=== PATIENT | male | born 1960 | race Two or more races ===

== ENCOUNTER 2018-07-28 11:50 | Emergency (ER) | payer SELFPAY ==
[~2018-07-28] VITALS: Ht 175.3 cm; Wt 103.0 kg
[2018-07-28 13:53] VITALS: BP 125/88
== END 2018-07-28 14:30 | disposition home or self-care (01) ==
LOC: ER 12:09
DX: S46.912A Strain of unspecified muscle, fascia and tendon at shoulder and upper arm level, left arm, initial encounter (principal); S29.011A Strain of muscle and tendon of front wall of thorax, initial encounter; X50.1XXA Overexertion from prolonged static or awkward postures, initial encounter; Y93.89 Activity, other specified; Y99.8 Other external cause status; Y92.89 Other specified places as the place of occurrence of the external cause
CPT/HCPCS: 71101; 73030

== ENCOUNTER 2019-06-19 20:18 | Emergency (ER) | payer OTHER ==
[~2019-06-19] VITALS: Ht 172.7 cm; Wt 102.1 kg
[2019-06-19 20:54] VITALS: BP 138/70
== END 2019-06-19 22:22 | disposition home or self-care (01) ==
LOC: ER 20:18
DX: L03.116 Cellulitis of left lower limb (principal); Z86.718 Personal history of other venous thrombosis and embolism
CPT/HCPCS: 93971

== ENCOUNTER 2020-09-27 10:36 | Inpatient (IN) | payer OTHER ==
[~2020-09-27] VITALS: Ht 175.3 cm; Wt 107.7 kg
[2020-09-27] MEDS ORDERED: methylPREDNISolone SOD SUCC 125 MG/2 ML VL IV ONE (11:00)
[2020-09-27] MEDS ORDERED: ZINC SULFATE 220mg CAP or TAB PO ONE (11:00)
[2020-09-27] MEDS ORDERED: CHOLECALCIFEROL (VITD3) 2,000 UNIT CAP/TAB PO ONE (11:00)
[2020-09-27] MEDS ORDERED: AZITHROMYCIN 500MG/ 250ML 250 ML IV ONE (11:00)
[2020-09-27] MEDS ORDERED: ASCORBIC ACID 500 MG TAB PO ONE (11:00)
[2020-09-27 11:19] LABS: Basophils # (auto) 0 10 ^3/uL (0-0.2); Basophils % (auto) 0.5 % (0.0-2.0); Eosinophils # (auto) 0 10 ^3/uL (0-0.8); Hematocrit 42.5 % (41.0-53.0); Lymphocytes # (auto) 1.3 10 ^3/uL (0.4-5.4); Lymphocytes % (auto) 24.9 % (10.0-50.0); Mean Corpuscular Hemoglobin 31.5 pg (28.0-32.0); Mean Corpuscular Hgb Conc. 35.3 g/dL (32.0-36.0); Mean Corpuscular Volume 89.2 fL (80.0-100.0); Monocytes # (auto) 0.4 10 ^3/uL (0-1.3); Neutrophils # (auto) 3.4 10 ^3/uL (1.6-8.6); Neutrophils % (auto) 67.6 % (37.0-80.0); Nucleated Red Blood Cells % 0.1 %; Red Blood Cells 4.76 10^6/uL (4.5-5.90); Red Cell Distribution Width 12.8 % (11.8-14.3); White Blood Cell 5.1 10^3/uL (4.4-10.8)
[2020-09-27 11:40] LABS: Albumin 3.2 g/dL (3.4-5.0); Anion Gap 4 (5-15); Blood Urea Nitrogen 14 mg/dL (7-18); Calcium 8.6 mg/dL (8.5-10.1); Carbon Dioxide 28 mmol/L (21-32); Chloride 101 mmol/L (98-107); Glucose 103 mg/dL (74-106); Magnesium 2.4 mg/dL (1.6-2.6); Potassium 4.2 mmol/L (3.5-5.1); Sodium 133 mmol/L (136-145)
[2020-09-27 11:48] LABS: Alanine Aminotransferase 57 U/L (16-61); Alkaline Phosphatase 74 U/L (45-117); Aspartate Aminotransferase 61 U/L (15-37); Bilirubin, Total 0.5 mg/dL (0.2-1.0); CRP High Sensitivity 1.69 mg/dL (< 0.3); GFR African American 82 mL/min; GFR Non-African American 68 mL/min; Total Protein 7.8 g/dL (6.4-8.2)
[2020-09-27 12:04] LABS: Urine Bacteria NONE SEEN /hpf (None Seen); Urine Blood Negative /uL (Negative); Urine Specific Gravity 1.014 (1.001-1.035); Urine WBC 1 /hpf (0 - 3)
[2020-09-27] MEDS ORDERED: ONDANSETRON HCL 4 MG/2 ML VIAL IV ONE (12:15)
[2020-09-27] MEDS ORDERED: MORPHINE SULFATE INJECTION 2 MG/ML SYRG IV PRN (13:30)
[2020-09-27] MEDS ORDERED: ACETAMINOPHEN 500 MG TAB PO PRN (13:30)
[2020-09-27] MEDS ORDERED: ONDANSETRON HCL 4 MG/2 ML VIAL IV PRN (13:30)
[2020-09-27] MEDS ORDERED: hydrALAZINE HCL 20 MG/ML VL IV PRN (13:30)
[2020-09-27] MEDS ORDERED: LORazepam 0.5 MG TAB PO PRN (13:30)
[2020-09-27] MEDS ORDERED: MORPHINE SULFATE 4 MG/ML SYR/VIAL IV PRN (13:30)
[2020-09-27] MEDS ORDERED: NITROGLYCERIN 0.4 MG SL TAB SL PRN (13:30)
[2020-09-27] MEDS ORDERED: DOCUSATE CALCIUM 240 MG CAP PO PRN (13:30)
[2020-09-27 14:00] VITALS: BP 94/55
[2020-09-27] MEDS ORDERED: SODIUM CHLORIDE 0.9% 1,000 ML IV ONE (14:00)
[2020-09-27] MEDS: SODIUM CHLORIDE 0.9% 1,000 ML IV SCH (15:10)
[2020-09-27] MEDS: IPRATROPIUM BROMIDE HFA AER IN SCH (20:45)
[2020-09-27] MEDS: methylPREDNISolone SOD SUCC 125 MG/2 ML VL IV SCH (22:02)
[2020-09-27] MEDS: ENOXAPARIN SOD 40 MG/0.4 ML SYRINGE SC SCH (22:02)
[2020-09-28] MEDS: BUDESONIDE (INHALATION) 180 MCG IH IN SCH ×3 (00:55→19:20)
[2020-09-28] MEDS: IPRATROPIUM BROMIDE HFA AER IN SCH ×5 (00:55→22:37)
[2020-09-28] MEDS: ALBUTEROL SULF HFA 90MCG INH 200DOSE IN PRN ×3 (00:56→21:25)
[2020-09-28] MEDS: SODIUM CHLORIDE 0.9% 1,000 ML IV SCH ×2 (01:00→11:00)
[2020-09-28 05:18] LABS: Basophils # (auto) 0 10 ^3/uL (0-0.2); Eosinophils # (auto) 0 10 ^3/uL (0-0.8); Hematocrit 40.7 % (41.0-53.0); Hemoglobin 14.4 g/dL (13.5-17.5); Lymphocytes # (auto) 0.6 10 ^3/uL (0.4-5.4); Lymphocytes % (auto) 17.4 % (10.0-50.0); Mean Corpuscular Hemoglobin 31.3 pg (28.0-32.0); Mean Corpuscular Hgb Conc. 35.3 g/dL (32.0-36.0); Mean Corpuscular Volume 88.7 fL (80.0-100.0); Monocytes # (auto) 0.2 10 ^3/uL (0-1.3); Monocytes % (auto) 6.7 % (0.0-12.0); Neutrophils # (auto) 2.6 10 ^3/uL (1.6-8.6); Neutrophils % (auto) 74.9 % (37.0-80.0); Red Blood Cells 4.59 10^6/uL (4.5-5.90); Red Cell Distribution Width 12.7 % (11.8-14.3); White Blood Cell 3.5 10^3/uL (4.4-10.8)
[2020-09-28 05:34] LABS: BUN/Creatinine Ratio 19.2; Calcium 8.4 mg/dL (8.5-10.1); INR 1.02 (0.9-1.15)
[2020-09-28 05:36] LABS: Bilirubin, Total 0.4 mg/dL (0.2-1.0); Total Protein 7.4 g/dL (6.4-8.2)
[2020-09-28 06:02] LABS: Thyroid Stimulating Hormone 0.17 uIU/mL (0.358-3.74)
[2020-09-28] MEDS: ENOXAPARIN SOD 40 MG/0.4 ML SYRINGE SC SCH ×2 (10:19→21:38)
[2020-09-28] MEDS: CHOLECALCIFEROL (VITD3) 2,000 UNIT CAP/TAB PO SCH (10:20)
[2020-09-28] MEDS: methylPREDNISolone SOD SUCC 125 MG/2 ML VL IV SCH (10:21)
[2020-09-28] MEDS: ZINC SULFATE 220mg CAP or TAB PO SCH (10:22)
[2020-09-28] MEDS: AZITHROMYCIN 500MG/ 250ML 250 ML IV SCH (10:23)
[2020-09-28] MEDS: PANTOPRAZOLE 40 MG TAB PO SCH (10:24)
[2020-09-28] MEDS: cefTRIAXone 1GM/50ML D5W 50 ML IV SCH (10:24)
[2020-09-28] MEDS: ASCORBIC ACID 1,000 MG TAB PO SCH (10:25)
[2020-09-29 05:30] VITALS: BP 117/87
[2020-09-29 06:04] VITALS: BP 117/87
[2020-09-29] MEDS: IPRATROPIUM BROMIDE HFA AER IN SCH (08:30)
[2020-09-29] MEDS: BUDESONIDE (INHALATION) 180 MCG IH IN SCH ×2 (08:30→21:51)
[2020-09-29] MEDS: ALBUTEROL SULF HFA 90MCG INH 200DOSE IN PRN ×2 (08:30→21:51)
[2020-09-29 09:00] VITALS: BP 97/58
[2020-09-29 09:41] LABS: Basophils # (auto) 0 10 ^3/uL (0-0.2); Basophils % (auto) 0.2 % (0.0-2.0); Eosinophils # (auto) 0 10 ^3/uL (0-0.8); Hematocrit 41.2 % (41.0-53.0); Hemoglobin 14.4 g/dL (13.5-17.5); Lymphocytes # (auto) 0.9 10 ^3/uL (0.4-5.4); Lymphocytes % (auto) 6.8 % (10.0-50.0); Mean Corpuscular Hemoglobin 31.3 pg (28.0-32.0); Mean Corpuscular Volume 89.4 fL (80.0-100.0); Monocytes # (auto) 0.8 10 ^3/uL (0-1.3); Monocytes % (auto) 5.8 % (0.0-12.0); Neutrophils # (auto) 11.4 10 ^3/uL (1.6-8.6); Neutrophils % (auto) 87.2 % (37.0-80.0); Red Blood Cells 4.61 10^6/uL (4.5-5.90); Red Cell Distribution Width 12.6 % (11.8-14.3); White Blood Cell 13.1 10^3/uL (4.4-10.8)
[2020-09-29 09:56] LABS: Lactic Acid w/Reflex 2.6 mmol/L (0.4-2.0)
[2020-09-29 09:59] LABS: Potassium 3.8 mmol/L (3.5-5.1)
[2020-09-29 10:09] LABS: Albumin 3.1 g/dL (3.4-5.0); BUN/Creatinine Ratio 21.6; Bilirubin, Total 0.4 mg/dL (0.2-1.0); CRP High Sensitivity 0.66 mg/dL (< 0.3); Calcium 8.9 mg/dL (8.5-10.1); Magnesium 2.6 mg/dL (1.6-2.6); Total Protein 7.7 g/dL (6.4-8.2)
[2020-09-29] MEDS: AZITHROMYCIN 500MG/ 250ML 250 ML IV SCH (10:18)
[2020-09-29] MEDS: ENOXAPARIN SOD 40 MG/0.4 ML SYRINGE SC SCH ×2 (10:18→21:45)
[2020-09-29] MEDS: DexAMETHasone SOD PHOS 10MG/1ML VIAL INJ IV SCH (10:18)
[2020-09-29] MEDS: CHOLECALCIFEROL (VITD3) 2,000 UNIT CAP/TAB PO SCH (10:19)
[2020-09-29] MEDS: ZINC SULFATE 220mg CAP or TAB PO SCH (10:19)
[2020-09-29] MEDS: PANTOPRAZOLE 40 MG TAB PO SCH (10:19)
[2020-09-29] MEDS: ASCORBIC ACID 1,000 MG TAB PO SCH (10:19)
[2020-09-29 11:09] LABS: Thyroid Stimulating Hormone 0.59 uIU/mL (0.358-3.74)
[2020-09-29] MEDS: cefTRIAXone 1GM/50ML D5W 50 ML IV SCH (11:20)
[2020-09-29 13:00] VITALS: BP 126/66
[2020-09-29] MEDS ORDERED: IPRATROPIUM BROMIDE HFA AER IN SCH (13:15)
[2020-09-29 17:00] VITALS: BP 100/62
[2020-09-29 22:00] VITALS: BP 98/64
[2020-09-30 05:00] VITALS: BP 107/70
[2020-09-30] MEDS: ALBUTEROL SULF HFA 90MCG INH 200DOSE IN PRN ×2 (07:06→22:18)
[2020-09-30] MEDS: BUDESONIDE (INHALATION) 180 MCG IH IN SCH ×2 (07:06→22:18)
[2020-09-30 09:00] VITALS: BP 100/66
[2020-09-30] MEDS: DexAMETHasone SOD PHOS 10MG/1ML VIAL INJ IV SCH (09:18)
[2020-09-30] MEDS: cefTRIAXone 1GM/50ML D5W 50 ML IV SCH (09:18)
[2020-09-30] MEDS: ZINC SULFATE 220mg CAP or TAB PO SCH (09:19)
[2020-09-30] MEDS: ASCORBIC ACID 1,000 MG TAB PO SCH (09:19)
[2020-09-30] MEDS: CHOLECALCIFEROL (VITD3) 2,000 UNIT CAP/TAB PO SCH (09:19)
[2020-09-30] MEDS: PANTOPRAZOLE 40 MG TAB PO SCH (09:19)
[2020-09-30] MEDS: ENOXAPARIN SOD 40 MG/0.4 ML SYRINGE SC SCH ×2 (09:20→21:41)
[2020-09-30] MEDS: AZITHROMYCIN 500MG/ 250ML 250 ML IV SCH (11:05)
[2020-09-30 13:00] VITALS: BP 112/71
[2020-09-30 17:00] VITALS: BP 118/69
[2020-09-30 22:00] VITALS: BP 109/85
[2020-10-01 05:29] VITALS: BP 124/85
[2020-10-01] MEDS: ALBUTEROL SULF HFA 90MCG INH 200DOSE IN PRN ×2 (06:46→21:11)
[2020-10-01] MEDS: BUDESONIDE (INHALATION) 180 MCG IH IN SCH ×2 (06:46→21:12)
[2020-10-01 09:00] VITALS: BP 130/72
[2020-10-01] MEDS: cefTRIAXone 1GM/50ML D5W 50 ML IV SCH (09:00)
[2020-10-01] MEDS: CHOLECALCIFEROL (VITD3) 2,000 UNIT CAP/TAB PO SCH (09:01)
[2020-10-01] MEDS: PANTOPRAZOLE 40 MG TAB PO SCH (09:01)
[2020-10-01] MEDS: ZINC SULFATE 220mg CAP or TAB PO SCH (09:01)
[2020-10-01] MEDS: ASCORBIC ACID 1,000 MG TAB PO SCH (09:01)
[2020-10-01] MEDS: DexAMETHasone SOD PHOS 10MG/1ML VIAL INJ IV SCH (09:01)
[2020-10-01] MEDS: ENOXAPARIN SOD 40 MG/0.4 ML SYRINGE SC SCH ×2 (09:02→22:00)
[2020-10-01] MEDS: AZITHROMYCIN 500MG/ 250ML 250 ML IV SCH (11:06)
[2020-10-01 13:00] VITALS: BP 133/81
[2020-10-01] MEDS ORDERED: REMDESIVIR PER PHARMACY 0 ML IV SCH (16:15)
[2020-10-01 17:00] VITALS: BP 122/78
[2020-10-01 17:31] LABS: Albumin 2.9 g/dL (3.4-5.0); Potassium 4.9 mmol/L (3.5-5.1)
[2020-10-01 17:33] LABS: BUN/Creatinine Ratio 17.5; Bilirubin, Total 0.3 mg/dL (0.2-1.0); Total Protein 7.4 g/dL (6.4-8.2)
[2020-10-01] MEDS ORDERED: REMDESIVIR 200 MG in NS 210ml LOADING DOSE ADULT IV ONE (19:00)
[2020-10-01 22:00] VITALS: BP 125/75
[2020-10-02 05:00] VITALS: BP 123/76
[2020-10-02] MEDS: ALBUTEROL SULF HFA 90MCG INH 200DOSE IN PRN (06:04)
[2020-10-02] MEDS: BUDESONIDE (INHALATION) 180 MCG IH IN SCH ×2 (06:05→20:54)
[2020-10-02 07:06] LABS: Albumin 2.5 g/dL (3.4-5.0); Anion Gap 5 (5-15); Blood Urea Nitrogen 17 mg/dL (7-18); Calcium 8.6 mg/dL (8.5-10.1); Carbon Dioxide 27 mmol/L (21-32); Chloride 107 mmol/L (98-107); Glucose 84 mg/dL (74-106); Potassium 4.2 mmol/L (3.5-5.1); Sodium 139 mmol/L (136-145)
[2020-10-02 07:08] LABS: Alanine Aminotransferase 130 U/L (16-61); Aspartate Aminotransferase 48 U/L (15-37); BUN/Creatinine Ratio 20.5; GFR African American 122 mL/min; GFR Non-African American 101 mL/min
[2020-10-02 07:11] LABS: Alkaline Phosphatase 108 U/L (45-117); Bilirubin, Total 0.5 mg/dL (0.2-1.0); Total Protein 6.7 g/dL (6.4-8.2)
[2020-10-02 07:21] LABS: Basophils # (auto) 0 10 ^3/uL (0-0.2); Basophils % (auto) 0.4 % (0.0-2.0); Eosinophils # (auto) 0 10 ^3/uL (0-0.8); Eosinophils % (auto) 0.2 % (0.0-7.0); Hematocrit 41.2 % (41.0-53.0); Hemoglobin 14.4 g/dL (13.5-17.5); Lymphocytes # (auto) 1.8 10 ^3/uL (0.4-5.4); Lymphocytes % (auto) 19.8 % (10.0-50.0); Mean Corpuscular Hemoglobin 31.9 pg (28.0-32.0); Mean Corpuscular Hgb Conc. 34.9 g/dL (32.0-36.0); Mean Corpuscular Volume 91.3 fL (80.0-100.0); Monocytes # (auto) 0.9 10 ^3/uL (0-1.3); Monocytes % (auto) 9.5 % (0.0-12.0); Neutrophils # (auto) 6.4 10 ^3/uL (1.6-8.6); Neutrophils % (auto) 70.1 % (37.0-80.0); Nucleated Red Blood Cells % 0.2 %; Red Blood Cells 4.52 10^6/uL (4.5-5.90); Red Cell Distribution Width 12.7 % (11.8-14.3); White Blood Cell 9.1 10^3/uL (4.4-10.8)
[2020-10-02 09:00] VITALS: BP 120/74
[2020-10-02 09:01] LABS: Albumin 2.6 g/dL (3.4-5.0); Magnesium 2.6 mg/dL (1.6-2.6)
[2020-10-02 09:04] LABS: Bilirubin, Direct 0.1 mg/dL (0-0.2); Bilirubin, Total 0.4 mg/dL (0.2-1.0); CRP High Sensitivity 0.44 mg/dL (< 0.3)
[2020-10-02] MEDS: ENOXAPARIN SOD 40 MG/0.4 ML SYRINGE SC SCH ×2 (10:17→21:34)
[2020-10-02] MEDS: ASCORBIC ACID 1,000 MG TAB PO SCH (10:17)
[2020-10-02] MEDS: cefTRIAXone 1GM/50ML D5W 50 ML IV SCH (10:17)
[2020-10-02] MEDS: PANTOPRAZOLE 40 MG TAB PO SCH (10:17)
[2020-10-02] MEDS: CHOLECALCIFEROL (VITD3) 2,000 UNIT CAP/TAB PO SCH (10:17)
[2020-10-02] MEDS: ZINC SULFATE 220mg CAP or TAB PO SCH (10:17)
[2020-10-02] MEDS: DexAMETHasone SOD PHOS 10MG/1ML VIAL INJ IV SCH (10:17)
[2020-10-02] MEDS: AZITHROMYCIN 500MG/ 250ML 250 ML IV SCH (10:18)
[2020-10-02 13:00] VITALS: BP 128/79
[2020-10-02] MEDS: REMDESIVIR 100mg 100 MG in SODIUM CHL 0.9% 230 ML IV SCH (15:00)
[2020-10-02] MEDS ORDERED: FUROSEMIDE 20 MG/2 ML VIAL IV ONE (15:15)
[2020-10-02 17:00] VITALS: BP 115/73
[2020-10-02 22:00] VITALS: BP 120/75
[2020-10-03] MEDS: ALBUTEROL SULF HFA 90MCG INH 200DOSE IN PRN ×2 (00:48→11:26)
[2020-10-03 05:00] VITALS: BP 103/65
[2020-10-03 06:59] LABS: INR 1.05 (0.9-1.15)
[2020-10-03 07:21] LABS: Albumin 2.8 g/dL (3.4-5.0); BUN/Creatinine Ratio 20.6; Bilirubin, Direct 0.1 mg/dL (0-0.2); Bilirubin, Total 0.4 mg/dL (0.2-1.0); CRP High Sensitivity 0.29 mg/dL (< 0.3); Calcium 8.8 mg/dL (8.5-10.1); Total Protein 6.8 g/dL (6.4-8.2)
[2020-10-03 09:00] VITALS: BP 119/74
[2020-10-03] MEDS: cefTRIAXone 1GM/50ML D5W 50 ML IV SCH (09:00)
[2020-10-03] MEDS: PANTOPRAZOLE 40 MG TAB PO SCH (10:00)
[2020-10-03] MEDS: DexAMETHasone SOD PHOS 10MG/1ML VIAL INJ IV SCH (10:35)
[2020-10-03] MEDS: ASCORBIC ACID 1,000 MG TAB PO SCH (10:36)
[2020-10-03] MEDS: CHOLECALCIFEROL (VITD3) 2,000 UNIT CAP/TAB PO SCH (10:36)
[2020-10-03] MEDS: ZINC SULFATE 220mg CAP or TAB PO SCH (10:36)
[2020-10-03] MEDS: ENOXAPARIN SOD 40 MG/0.4 ML SYRINGE SC SCH (10:36)
[2020-10-03 11:17] VITALS: BP 144/80
[2020-10-03] MEDS: BUDESONIDE (INHALATION) 180 MCG IH IN SCH (11:26)
[2020-10-03] MEDS ORDERED: ZINC220T6 PO (11:52)
[2020-10-03] MEDS ORDERED: DOXY-286 PO (11:52)
[2020-10-03] MEDS ORDERED: ASCO10003 PO (11:52)
[2020-10-03] MEDS ORDERED: BUDE2SUS3 IN (11:52)
[2020-10-03] MEDS ORDERED: ASPI-378 PO (11:52)
[2020-10-03] MEDS ORDERED: ALBUAER3 IN (11:52)
[2020-10-03] MEDS ORDERED: CHOL20007 PO (11:52)
[2020-10-03] MEDS ORDERED: FAMO20TA10 PO (11:52)
[2020-10-03] MEDS ORDERED: DEX4T PO (11:52)
[2020-10-03 13:00] VITALS: BP 126/77
[2020-10-03] MEDS: REMDESIVIR 100mg 100 MG in SODIUM CHL 0.9% 230 ML IV SCH (15:00)
[2020-10-03 15:29] VITALS: BP 115/73
[2020-10-03] MEDS ORDERED: APIX5TAB PO (15:58)
[2020-10-03 17:00] VITALS: BP 134/82
== END 2020-10-03 17:45 | disposition home or self-care (01) | DRG 871 ==
LOC: ER 10:36 → TELE 13:23 → TELE-EAST 09-29 03:56
PROVIDERS: ADMIT Family Medicine; ATTEND Internal Medicine
PROC: XW033E5 Introduction of Remdesivir Anti-infective into Peripheral Vein, Percutaneous Approach, New Technology Group 5 (ICD-10-PCS; principal; 2020-10-01)
DX: A41.89 Other specified sepsis (principal); J12.82 Pneumonia due to coronavirus disease 2019; J96.01 Acute respiratory failure with hypoxia; U07.1 COVID-19; E87.1 Hypo-osmolality and hyponatremia; E66.9 Obesity, unspecified; D89.839 Cytokine release syndrome, grade unspecified; E86.0 Dehydration; Z68.34 Body mass index [BMI] 34.0-34.9, adult
CPT/HCPCS: 36415; 71045; 80053; 80076; 81001; 82306; 82728; 83605; 83615; 83735; 84443; 84484; 85025; 85379; 85610; 86141; 87040; 87426; 93005; 93970; 94640; 96374; 99291; G0378; J0696; J1100